=== PATIENT | male | born 1985 | race Caucasian/White ===

== ENCOUNTER 2018-02-07 07:48 | Emergency (ER) | payer SELFPAY ==
[2018-02-07] MEDS ORDERED: SULFAMETH/TRIMETH DS 800/160 MG TABLET PO STA (08:13)
--- NOTE | 2018-02-07 08:16 | ED Physician Documentation ---
PD HPI HEENT - Stated complaint Stated Complaint: BUMP ON FACE - Chief complaint Chief Complaint: Heent - History obtained from History obtained from: Patient - History of Present Illness Timing - onset: How many weeks ago (2) Timing - details: Constant Location: Other (Face) Associated symptoms: Facial swelling. No: Fever, Headache, Cough Similar symptoms before: No: Has not had sx before - Additional information Additional information: The patient is a 32-year-old male who presents with a swollen lump on his right cheek. He first noticed it 2 weeks ago as a blackhead. It increased significantly in size after he applied acne medication. He denies fever, headache, or toothache. He denies history of similar symptoms in the past. He has no history of MRSA. Review of Systems Constitutional: denies: Fever Eyes: denies: Decreased vision Nose: denies: Congestion Throat: denies: Sore throat Respiratory: denies: Dyspnea GI: denies: Nausea Skin: reports: Lesions (Right cheek.) Musculoskeletal: denies: Neck pain Neurologic: denies: Headache PD PAST MEDICAL HISTORY - Past Medical History Endocrine/Autoimmune: None - Present Medications Home Medications: Ambulatory Orders Medication Instructions Recorded Confirmed Sulfamethox/Trimeth 800/160 1 each PO BID #14 tablet 02/07/18 [Bactrim Ds 800/160] - Allergies Allergies/Adverse Reactions: Allergies Allergy/AdvReac Type Severity Reaction Status Date / Time No Known Drug Allergies Allergy Verified 02/07/18 07:54 PD ED PE NORMAL - Vitals Vital signs reviewed: Yes (Mild systolic hypertension initially.) - General General: Alert and oriented X 3, Well developed/nourished - HEENT HEENT: Atraumatic, PERRL, EOMI, Pharynx benign, Other (There is a 1 cm diameter area of swelling on the right cheek and the upper maxillary region. There is mild associated erythema, and tenderness to palpation.) - Neck Neck: Supple, no meningeal sign, No adenopathy - Cardiac Cardiac: RRR - Respiratory Respiratory: No respiratory distress, Clear bilaterally - Derm Derm: No rash - Neuro Neuro: Alert and oriented X 3, Normal speech Results - Vitals Vitals: Vital Signs - 24 hr 02/07/18 07:51 Temperature 37.7 C H Heart Rate 79 Respiratory 16 Rate Blood Pressure 142/85 H O2 Saturation 99 Oxygen O2 Source Room air Procedures - Abscess I&D (location) Right cheek Preparation: Alcohol, Lidocaine 1%, With epi Incision: Needle aspiration, Purulent drainage, Culture obtained Other: Pt tolerated well, Dressing applied, Antibiotic prescribed PD MEDICAL DECISION MAKING - ED course Complexity details: considered differential, d/w patient ED course: The patient's presentation is significant for an abscess on the right cheek. There is no intraoral or intraorbital involvement. After topical anesthetic, the abscess was aspirated, resulting in 1/2 mL purulent aspirate. Culture swab was sent to the lab. Bactrim DS 1 tablet was administered orally. The patient is being discharged with prescription for Bactrim DS. I discussed with him the expected course of illness, antibiotic treatment and outpatient follow-up, as well as potentially worrisome signs or symptoms that should prompt reevaluation in the emergency department. Departure - Departure Disposition: 01 Home, Self Care Clinical Impression: Abscess Condition: Stable Instructions: ED Abscess IandD Follow-Up: [facility] [Provider Group] Prescriptions: Sulfamethox/Trimeth 800/160 [Bactrim Ds 800/160] 1 each PO BID #14 tablet Comments: Apply hot soaks to the infected area intermittently for the next 3 days. Take antibiotic twice daily as prescribed. You can use Tylenol or ibuprofen if needed for fever or discomfort. Follow-up with primary physician within 2 weeks. Call to schedule appointment. Return to the emergency department if you develop markedly increasing swelling or pain in your cheek, or otherwise worsening symptoms.
[2018-02-07] MEDS ORDERED: IBUPROFEN 800 MG TABLET PO STA (08:21)
[2018-02-07 08:45] VITALS: BP 133/64
== END 2018-02-07 08:44 | disposition home or self-care (01) ==
LOC: ED 07:48
DX: L02.01 Cutaneous abscess of face (principal)
CPT/HCPCS: 10160; 87070; 87205; 99283; A9270; 10060